=== PATIENT | male | born 1955 | race Caucasian/White ===

== ENCOUNTER → 2016-08-28 | Outpatient (CLI) | payer OTHER ==
--- NOTE | 2016-08-29 05:48 | PAP/PSG TECHNICIAN REPORT ---
[facility] Emergency Technician Polysomnogram Report Study name: None Report date: 08/29/2016 Study date: 08/28/2016 Referring Physician: Jamila Hamilton M.D. Name: GAMA NOONANALD Interpreting Physician: Milli Hamilton M.D. Date of : 1955 Emergency Technician: Gi Contreras [facility]. Sex: Male Age: 61 StudyType: PSG PAP Weight: 191 lbs Height: 61 years, Height 5' 10" BMI: 27.4 Medications: Alfuzosin 10 mg, Cinnamon 500 mg, Metformin 500 mg, Valium 5 mg, Nexium Patient History 61 yr. old male here for a titration sleep study to ensure the resolution of hypoxemia on an optimal pressure. Patient is currently on Auto Pap. Parameters Monitored NPSG: E1-M2, E2-M1, Fp1-M2, Fp2-M1, F3-M2, F4-M2, F4-M1, C3-M2, C4-M2, C4-M1, O1-M2, O2-M2, O2-M1, T3-M2, T4-M1, P3-M2, P4-M1, CHIN1, CHIN2, HR, EKG, Legs, PFLOW, SNOR, FLOW, CFLOW, Tidal Volume, THOR, ABDO, SpO2, PLTH, CPRESS, ETCO2 Wave, ETCO2, pH Sleep Architecture Sleep Stages Time at Lights Off 9:21:04 PM STAGES Time (min.) TST (%) Time at Lights On 5:32:34 AM Wake 45.0 -- Total Recording Time (TRT) 490.50 min. N1 53.5 12 Total Sleep Period (TSP) 482.0 min. N2 300.0 67 Total Sleep Time (TST) 445.5min. N3 5.0 1 Awake Time 45.0 min. REM 87.0 20 Wake after Sleep Onset 37.0 min. Sleep Efficiency (SE) 91 % Sleep Onset Latency (IVY) 9.0 min. Number of Stage 1 Shifts None Awakenings 15 Stage Changes 61 Number of REM periods 8 REM 87.0 20 REM Latency 119.0 min. NREM 358.5 80 Body Position Analysis Supine Right Left Side Prone Vertical Total Sleep Time (min.) 101.8 234.2 121.2 355.43 0.0 0.0 Total Sleep Time (%) 20% 53% 27% 80 0% N/A% Total Sleep Time REM (min.) 16.0 18.5 52.5 None 0.0 0.0 Total Sleep Time NREM (min.) 74.1 215.7 68.7 None 0.0 0.0 Intermittent Wake (min.) 11.8 30.5 2.7 None 0.0 0.0 Total Sleep Period (%) 21% None None None None None Arousals Myoclonus (PLM) * Events Count Index Events Count Index Spontaneous 4 1 Events Awake (PLMW) 34 45.3 Respiratory 1 0.3 Events Asleep w/ Arousal (PLMA) 13 1.8 PLM 12 2 Events Asleep w/o Arousal (PLMS) 89 12.0 Snoring 5 1 Total Asleep 102 13.7 Total 22 3 Total 136 17 Respiratory Analysis * CA OA MA CH H RERA Total Count 0 1 0 0 9 1 10 Index 0.0 0.1 0.0 0 1.2 0 1.5 Mean Duration 0.0 16.3 0.0 0.00 34.2 30.5 32.3 Longest Duration 0.0 16.3 0.0 0.00 0.0 30.5 69.6 Respiratory Event Summary Total Supine ~Supine Right Left Prone REM NREM Apneas Count 1 1 0 0 0 N/A 0 1 Index 0.1 1 0 0.0 0.0 N/A 0 0 Hypopneas (4% Desat) Count 9 9 0 0 0 N/A 3 6 Index 1.2 6.0 0 0.0 0.0 N/A 2.1 1.0 Apneas & All Hypopneas Count 10 10 0 0 0 N/A 3 7 Index 1.3 7 0 0 0 N/A 2.1 1.2 Respiratory Events (Senior Vice President+All Hyp+RERA) Count 10 11 0 0 0 N/A 3 7 Index 1.5 7 0 0.0 0.0 N/A 2.8 1.2 Respiratory Related Arousal Count 1 11 0 0 0 N/A 1 1 Index 0.3 1 0 0 0 N/A 1 0 Snoring Analysis Supine Right Left Prone REM NREM Total Snore duration 10.3 min Snores count 219 309 30 N/A 26 532 558 Snore mean duration 1.1 Sec Snores index 146 79 15 N/A 17.9 89.0 75.2 TST with snoring (%) 2.3% Desaturation Event Summary: Minimum %SpO2 Event Count Mean/Min/Max Duration(sec.) Desaturation Index % Time In Bed > 90 9 23.6 / 11.5 / 36.5 1.1 99.5 86 - 90 0 N/A 0.0 0.3 81 - 85 1 20.0 / 20.0 / 20.0 71.6 0.2 76 - 80 0 N/A 0.0 0.0 71 - 75 0 N/A 0.0 0.0 66 - 70 0 N/A 0.0 0.0 61 - 65 0 N/A 0.0 0.0 56 - 60 0 N/A 0.0 0.0 51 - 55 0 N/A 0.0 0.0 < 50 0 N/A 0.0 0.0 Total REM NREM Awake <50% 0.0 min. 0.0 min. 0.0 min. 0.0 min. 51 - 60% 0.0 min. 0.0 min. 0.0 min. 0.0 min. 61 - 70% 0.0 min. 0.0 min. 0.0 min. 0.0 min. 71 - 80% 0.2 min. 0.0 min. 0.0 min. 0.2 min. 81 - 90% 2.1 min. 0.8 min. 0.3 min. 0.9 min. 91 - 100% 484.0 min. 86.2 min. 358.2 min. 39.7 min. Average 94 94 94 94 Minimum SpO2 79 87 90 79 Desaturation Event Index 1.2 2.1 0.8 2.7 # Desat. Events below 89% 2 1 N/A 1 Time(%) with Saturation below 89% 0.2 0.0 0.0 0.2 Time(min.) with Saturation below 89% 1.1 0.1 0.0 1.0 Time (mins) REM (mins) NREM (mins) % of TST SpO2 Below 90% 7 3 N4 0.1 SpO2 Below 88% 0 0 0 0 Heart Rate Analysis Min (bpm) Max (bpm) Average (bpm) Awake 56 138 75 NREM 62 88 73 REM 64 85 71 Overall 62 88 73 Supplemental O2 Values Minimum O2 level: None Value Start Time End Time Emergency Technician Comments Mr. Noonan slept in the right, left, and supine positions. Cardiac arrhythmia and PLMs noted. No bruxism noted. CPAP was initiated at +5 CMH2O room air and up-titrated to an optimal level of +8 CMH2O Cflex 2 room air, which nearly eliminated all respiratory events and snoring. Mr. Noonan used his own full face mask, F20 by [employer]. Mr. Noonan awoke to use the restroom once during the night. Mr. Noonan stated, that was a normal night considering my surroundings were different. The final report will be interpreted and signed by a sleep physician. The completed physician report will then be placed in the patient medical record. Therapy Event: Therapy (cm H20) 5 6 7 8 Total Time at Pressure (min.) 37.2 97.9 107.4 248.0 TST at Pressure (min.) 26.7 96.4 103.4 219.0 # Periods 1 1 1 1 Sleep Onset (min.) 9.0 0.0 0.0 0.0 REM Onset (min.) N/A 90.8 0.0 26.5 Sleep Efficiency % 71 98 96 88 Wakefulness (%) 28.2 1.5 3.7 11.7 Wakefulness (min.) 10.5 1.5 4.0 29.0 NREM 1 (%) 28.2 4.6 8.8 11.7 NREM 1 (min.) 10.5 4.5 9.5 29.0 NREM 2 (%) 43.6 86.6 62.4 53.2 NREM 2 (min.) 16.2 84.8 67.0 132.0 NREM 3 (%) 0.0 0.0 4.7 0.0 NREM 3 (min.) 0.0 0.0 5.0 0.0 REM (%) 0.0 7.3 20.4 23.4 REM (min.) 0.0 7.2 21.8 58.0 # Arousals 2 2 5 13 Arousal Index 4.5 1.2 2.9 3.6 # Snore 94 239 43 182 Snore Index 211.0 148.7 25.0 49.9 AHI 0.0 1.9 4.1 0.0 AHI Supine N/A 8.9 14.1 0.0 AHI Non-Supine 0.0 0.0 0.0 0.0 NREM AHI 0.0 0.0 5.2 0.0 REM AHI N/A 25.2 0.0 0.0 RDI 0.0 1.9 4.6 0.0 # Obstructive 0 0 1 0 # Central Ap 0 0 0 0 # Mixed 0 0 0 0 # Hypopneas 0 3 6 0 RERAS 0 0 1 0 Total Respiratory Events 0 3 8 0 Time Below SpO2 89.00% (min.) 0.0 0.1 0.0 0.0 Mean NREM SpO2 (%) 95 94 95 94 Mean REM SpO2 (%) N/A 92 94 94 Mean Sleep SpO2 (%) 95 94 95 94 Min NREM SpO2 (%) 94 91 90 90 Min REM SpO2 (%) N/A 87 91 92 Position Supine (min.) 0.0 20.1 29.7 40.2 Position Non-supine (min.) 26.7 76.3 73.6 178.7 LM Index Sleep 4.5 20.5 17.4 10.1 LM Index NREM 4.5 22.2 18.4 7.1 LM Index REM N/A 0.0 13.7 18.6 Mean Heart Rate (bpm) 78 78 75 69 Min Heart Rate (bpm) 73 73 70 62
--- NOTE | 2016-09-07 00:26 | POLYSOMNOGRAPH REPORT ---
REFERRING PERSON: Dr. Bre Hamilton. STORYBOARD ARTIST: Gi Contreras. Mr. Noonan is a 61-year-old male sent for a CPAP titration study. He is currently on auto titrating CPAP, but has significant nocturnal hypoxemia and he is sent to the sleep lab to ensure that his hypoxemia resolves on optimal pressure. His Harold sleepiness scale score on the evening of this study is not listed. BMI is 27.4. Following the technical and digital specifications of the [employer] [employer] (AASM), a standard diagnostic polysomnogram was performed, monitoring EEG, EOG, EMG (chin and leg deviations), oxygen saturation, body position, digital video, respiratory effort and airflow. The sleep Stage and Event scoring was based on the AASM Manual for the Scoring of Sleep and Associated Events, 2007 edition. Apneas are defined as a drop in the peak thermal sensor excursion by >90% of baseline for at least 10 seconds. Hypopneas were scored using the 4% oxygen desaturation rule ([employer]A-[employer]) and a decrease in the nasal pressure excursions by >30% of baseline for at least 10 seconds. Respiratory effort-related arousal (RERA) is defined as a sequence of breaths lasting at least 10 seconds characterized by increasing respiratory effort or flattening of the nasal pressure waveform leading to an arousal from sleep when the sequence of breaths does not meet criteria for an apnea or hypopnea. Apnea-Hypopnea index (AHI) is defined as the number of apneas and hypopneas occurring in an hour of sleep. Respiratory disturbance index (RDI) is defined as the number of apneas, hypopneas, and RERAs occurring in an hour of sleep. Mr. Noonan's total sleep period time was 482 minutes. Total sleep time was 445.5 minutes. Sleep efficiency was 91%. Latency to sleep onset was 9 minutes with wake after sleep onset of 37 minutes. Total non-REM sleep time was 358.5 minutes. He spent 12% of that time in N1 sleep, 67% in N2 sleep and 1% in N3 sleep. REM latency was 119 minutes. Total REM sleep time was 87 minutes or 20% of total sleep time. There were 22 cortical arousals from sleep. Four of these arousals were spontaneous, 1 was due to a respiratory event, 12 due to periodic limb movements of sleep and 5 were due to snoring. There were 102 periodic limb movements noted on this test. Limb movement index was 13.7. Limb movement with arousal index was 1.8. There were no central, 1 obstructive and no mixed apnea on this titration. Additionally, there were 9 hypopneas and 1 RERA. Apnea-hypopnea index was normal at 1.3. There were 558 snoring events recorded. Total sleep time with snoring was 2.3%. Mean saturation was 94% with desaturations to 79%. Saturations were less than 89% for 1.1 minutes of recorded time. There was no cardiac ectopy noted on this study, other than occasional premature ventricular complexes. Heart rates ranged from a low of 62 beats per minute to a high of 88 beats per minute. As stated above, this was a CPAP titration study. Mr. Noonan was titrated from a CPAP pressure of 5 to a CPAP pressure of 8 over the course of the night. He used his own F20 [employer] mask for this titration. He was observed on a pressure of 8 for 219 minutes of recorded time. Fifty-eight of those minutes were spent in REM sleep. However, this was not supine REM sleep. AHI and RDI on this pressure were both 0 and there were no desaturations less than 89%. IMPRESSION AND PLAN: Successful CPAP titration study in this patient with known obstructive sleep apnea and nocturnal hypoxemia. On a pressure of 8, this patient's apnea as well as hypoxemia are resolved.
== END | disposition home or self-care (01) ==
LOC: C.NEUR 21:00
PROVIDERS: ATTEND Family Medicine
DX: G47.33 Obstructive sleep apnea (adult) (pediatric) (principal); G47.10 Hypersomnia, unspecified